=== PATIENT | male | born 1965 | race Caucasian/White ===

== ENCOUNTER 2016-10-29 20:18 | Emergency (ER) | payer OTHER ==
[~2016-10-29] VITALS: Ht 182.8 cm; Wt 81.6 kg
[2016-10-29] MEDS ORDERED: ANAPROX DS550 MG PO (20:51)
== END 2016-10-29 22:00 | disposition home or self-care (01) ==
LOC: ED 20:18
DX: M25.462 Effusion, left knee (principal); F17.200 Nicotine dependence, unspecified, uncomplicated

== ENCOUNTER 2021-05-23 16:44 | Inpatient (IN) | payer SELFPAY ==
[~2021-05-23] VITALS: Ht 182.8 cm; Wt 78.5 kg
[~2021-05-23 16:44] MED LIST: ANAPROX DS550 MG PO
[2021-05-23 17:15] VITALS: BP 154/106
[2021-05-23 17:50] LABS: HEMATOCRIT 42.7 % (42.0-52.0); MEAN CELL VOLUME 108.1 fl (80.0-94.0); MEAN CORPUSCULAR HGB 36.7 pg (27.0-31.0); MEAN PLATELET VOLUME 10.5 fl (9.6-12.3); PLATELET COUNT AUTOMATED 267 10*3/uL (130-400); RED BLOOD COUNT 3.95 10*6/uL (4.50-5.90); RED CELL DISTRI WIDTH 15.4 % (0-14.5); WHITE BLOOD COUNT 10.5 10*3/uL (4.8-10.8)
[2021-05-23 17:51] LABS: MANUAL DIFF REFLEX YES
[2021-05-23 18:01] LABS: ACT PARTIAL THROMBO TIME 24.8 SECONDS (20.0-32.1); INTERNATIONAL NORM RATIO 1.1 (2.0-3.5)
[2021-05-23 18:10] LABS: ALBUMIN 3.4 gm/dl (3.1-4.5); ALKALINE PHOSPHATASE 135 U/L (45-117); CHLORIDE 108 mmol/L (98-107); CREATININE 0.77 mg/dL (0.70-1.30); LIPASE 117 U/L (73-393); POTASSIUM 4.3 mmol/L (3.5-5.1); SGOT/AST 408 IU/L (3-35); SGPT/ALT 345 U/L (12-78); SODIUM 140 mmol/L (136-145); TOTAL PROTEIN 7.1 gm/dL (6.4-8.2)
[2021-05-23 18:14] LABS: BUN 12 mg/dl (7-24)
[2021-05-23 18:25] LABS: ATYPICAL LYMPHS 5 % (0-0); PLATELET SUFFICIENCY NORMAL (NORMAL); TOTAL CELLS COUNTED 100 #CELLS
[2021-05-23 20:02] VITALS: BP 160/107
[2021-05-23 21:52] VITALS: BP 125/107
[2021-05-23 22:47] VITALS: BP 131/74
[2021-05-24] VITALS (8 sets, daily range): BP systolic 123–146; BP diastolic 71–102
[2021-05-24 06:10] LABS: BUN 13 mg/dl (7-24); CHLORIDE 106 mmol/L (98-107); CHOLESTEROL 190 mg/dL (<200); CREATININE 0.65 mg/dL (0.70-1.30); POTASSIUM 4.2 mmol/L (3.5-5.1); SGOT/AST 466 IU/L (3-35); SGPT/ALT 305 U/L (12-78); SODIUM 139 mmol/L (136-145); TOTAL PROTEIN 6.7 gm/dL (6.4-8.2)
[2021-05-24 06:13] LABS: ALKALINE PHOSPHATASE 115 U/L (45-117); LDH 370 U/L (87-241); LDL CHOLESTEROL 79 mg/dL (9-159); TRIGLYCERIDES 81 mg/dl (<150)
[2021-05-24 06:15] LABS: BASO % 0.1 % (0.0-1.0); HEMATOCRIT 42.1 % (42.0-52.0); LYMPH # 0.4 10*3/uL (1.3-4.4); LYMPH % 6.4 % (27.0-41.0); MEAN CELL VOLUME 107.9 fl (80.0-94.0); MEAN CORPUSCULAR HGB 36.2 pg (27.0-31.0); MEAN CORPUSCULAR HGB CONC 33.5 g/dl (33.0-37.0); MEAN PLATELET VOLUME 11.2 fl (9.6-12.3); MONO # 0.4 10*3/uL (0.1-1.0); MONO % 6.4 % (3.0-9.0); NEUT % 86.8 % (47.0-73.0); PLATELET COUNT AUTOMATED 250 10*3/uL (130-400); RED CELL DISTRI WIDTH 15.2 % (0-14.5); WHITE BLOOD COUNT 6.9 10*3/uL (4.8-10.8)
[2021-05-24 06:30] LABS: INTERNATIONAL NORM RATIO 1.1 (2.0-3.5)
[2021-05-25] VITALS: BP 114/83
[2021-05-25 05:38] LABS: ALBUMIN 2.6 gm/dl (3.1-4.5); ALKALINE PHOSPHATASE 90 U/L (45-117); BUN 20 mg/dl (7-24); CHLORIDE 106 mmol/L (98-107); CREATININE 0.66 mg/dL (0.70-1.30); POTASSIUM 4.1 mmol/L (3.5-5.1); SGOT/AST 142 IU/L (3-35); SGPT/ALT 191 U/L (12-78); SODIUM 138 mmol/L (136-145); TOTAL PROTEIN 5.8 gm/dL (6.4-8.2)
[2021-05-25 06:44] LABS: BASO % 0.1 % (0.0-1.0); HEMATOCRIT 41.8 % (42.0-52.0); LYMPH # 1.2 10*3/uL (1.3-4.4); LYMPH % 8.3 % (27.0-41.0); MEAN CELL VOLUME 106.6 fl (80.0-94.0); MEAN CORPUSCULAR HGB 36.5 pg (27.0-31.0); MEAN CORPUSCULAR HGB CONC 34.2 g/dl (33.0-37.0); MEAN PLATELET VOLUME 11.5 fl (9.6-12.3); MONO # 1.1 10*3/uL (0.1-1.0); MONO % 7.8 % (3.0-9.0); NEUT # 11.5 10*3/uL (2.3-7.9); NEUT % 83.4 % (47.0-73.0); PLATELET COUNT AUTOMATED 243 10*3/uL (130-400); RED BLOOD COUNT 3.92 10*6/uL (4.50-5.90); RED CELL DISTRI WIDTH 14.6 % (0-14.5); WHITE BLOOD COUNT 13.8 10*3/uL (4.8-10.8)
[2021-05-25 08:00] VITALS: BP 114/78; BP 118/78
[2021-05-25 08:08] LABS: HEP B CORE AB, IGM Negative (Negative); HEPATITIS B SURFACE AG Negative (Negative); HEPATITIS C VIRUS ANTIBODY <0.1 s/co (0.0-0.9)
[2021-05-25 12:00] VITALS: BP 109/72
[2021-05-25 16:00] VITALS: BP 112/73
[2021-05-25 20:00] VITALS: BP 106/64
[2021-05-26] VITALS: BP 116/83
[2021-05-26 06:27] LABS: HEMATOCRIT 43.9 % (42.0-52.0); MEAN CELL VOLUME 108.4 fl (80.0-94.0); MEAN CORPUSCULAR HGB 37.8 pg (27.0-31.0); MEAN CORPUSCULAR HGB CONC 34.9 g/dl (33.0-37.0); MEAN PLATELET VOLUME 11.4 fl (9.6-12.3); PLATELET COUNT AUTOMATED 225 10*3/uL (130-400); RED BLOOD COUNT 4.05 10*6/uL (4.50-5.90); RED CELL DISTRI WIDTH 14.3 % (0-14.5); WHITE BLOOD COUNT 13.3 10*3/uL (4.8-10.8)
[2021-05-26 06:34] LABS: ALBUMIN 2.3 gm/dl (3.1-4.5); ALKALINE PHOSPHATASE 87 U/L (45-117); BUN 17 mg/dl (7-24); CHLORIDE 106 mmol/L (98-107); CREATININE 0.56 mg/dL (0.70-1.30); POTASSIUM 4.2 mmol/L (3.5-5.1); SGOT/AST 118 IU/L (3-35); SGPT/ALT 175 U/L (12-78); SODIUM 138 mmol/L (136-145)
[2021-05-26 07:06] LABS: MANUAL DIFF REFLEX YES
[2021-05-26 07:31] LABS: TOTAL CELLS COUNTED 100 #CELLS
[2021-05-26 07:32] LABS: PLATELET SUFFICIENCY NORMAL (NORMAL); POLYCHROMASIA SLIGHT; TARGET CELLS FEW
[2021-05-26 08:00] VITALS: BP 122/80
[2021-05-26 12:00] VITALS: BP 105/71
[2021-05-26 16:00] VITALS: BP 102/71; BP 110/73
[2021-05-26 20:00] VITALS: BP 118/85
[2021-05-27] VITALS: BP 112/77
[2021-05-27 06:23] LABS: EOS % 0.1 % (1.0-4.0); HEMATOCRIT 42.4 % (42.0-52.0); LYMPH # 1.8 10*3/uL (1.3-4.4); LYMPH % 16.7 % (27.0-41.0); MEAN CORPUSCULAR HGB CONC 34.4 g/dl (33.0-37.0); MEAN PLATELET VOLUME 10.7 fl (9.6-12.3); MONO % 9.8 % (3.0-9.0); NEUT # 7.7 10*3/uL (2.3-7.9); NEUT % 72.9 % (47.0-73.0); PLATELET COUNT AUTOMATED 227 10*3/uL (130-400); RED BLOOD COUNT 4.05 10*6/uL (4.50-5.90); RED CELL DISTRI WIDTH 13.9 % (0-14.5); WHITE BLOOD COUNT 10.6 10*3/uL (4.8-10.8)
[2021-05-27 06:40] LABS: ALBUMIN 2.6 gm/dl (3.1-4.5); ALKALINE PHOSPHATASE 76 U/L (45-117); BUN 14 mg/dl (7-24); CHLORIDE 104 mmol/L (98-107); CREATININE 0.58 mg/dL (0.70-1.30); POTASSIUM 4.2 mmol/L (3.5-5.1); SGOT/AST 95 IU/L (3-35); SGPT/ALT 167 U/L (12-78); SODIUM 135 mmol/L (136-145); TOTAL PROTEIN 5.9 gm/dL (6.4-8.2)
[2021-05-27 07:14] VITALS: BP 121/87
[2021-05-27 07:17] LABS: MEAN CELL VOLUME 104.7 fl (80.0-94.0)
[2021-05-27] MEDS ORDERED: LISINOPRIL10 M1 PO (10:56)
[2021-05-27] MEDS ORDERED: ALDACTONE25 MG PO (10:56)
[2021-05-27] MEDS ORDERED: METOPROLOL SUCC25 M2 PO (10:56)
[2021-05-27] MEDS ORDERED: LEVOFLOXACIN750 M2 PO (10:56)
[2021-05-27] MEDS ORDERED: FUROSEMIDE20 M1 PO (10:56)
[2021-05-27 12:00] VITALS: BP 101/73
== END 2021-05-27 15:15 | disposition home or self-care (01) | DRG 871 ==
LOC: ED 16:44 → EDHOLD 18:46 → 4E 05-24 16:38
PROVIDERS: Emergency Medicine; Family Medicine; Internal Medicine; ADMIT Internal Medicine; ATTEND Internal Medicine
DX: A41.9 Sepsis, unspecified organism (principal); J96.01 Acute respiratory failure with hypoxia; J15.9 Unspecified bacterial pneumonia; I50.23 Acute on chronic systolic (congestive) heart failure; E87.2 Acidosis; J44.0 Chronic obstructive pulmonary disease with (acute) lower respiratory infection; I08.1 Rheumatic disorders of both mitral and tricuspid valves; Z20.822 Contact with and (suspected) exposure to COVID-19; E87.8 Other disorders of electrolyte and fluid balance, not elsewhere classified; I27.20 Pulmonary hypertension, unspecified; E80.6 Other disorders of bilirubin metabolism; F17.210 Nicotine dependence, cigarettes, uncomplicated; F10.10 Alcohol abuse, uncomplicated; F19.10 Other psychoactive substance abuse, uncomplicated; R65.20 Severe sepsis without septic shock; R73.9 Hyperglycemia, unspecified; Z68.23 Body mass index [BMI] 23.0-23.9, adult; Z71.6 Tobacco abuse counseling

== ENCOUNTER → 2021-06-06 | Outpatient (CLI) | payer SELFPAY ==
[~2021-06-06] MED LIST changes: +ALDACTONE25 MG PO; +FUROSEMIDE20 M1 PO; +LEVOFLOXACIN750 M2 PO; +LISINOPRIL10 M1 PO; +METOPROLOL SUCC25 M2 PO
== END | disposition home or self-care (01) ==
LOC: RESCLI 00:44
PROVIDERS: ATTEND Internal Medicine Nephrology
DX: Z76.89 Persons encountering health services in other specified circumstances (principal); I50.20 Unspecified systolic (congestive) heart failure; J44.9 Chronic obstructive pulmonary disease, unspecified; Z12.2 Encounter for screening for malignant neoplasm of respiratory organs; Z12.11 Encounter for screening for malignant neoplasm of colon; K76.0 Fatty (change of) liver, not elsewhere classified; F10.10 Alcohol abuse, uncomplicated; F17.210 Nicotine dependence, cigarettes, uncomplicated; Z71.6 Tobacco abuse counseling; Z72.89 Other problems related to lifestyle; Z98.890 Other specified postprocedural states; Z79.899 Other long term (current) drug therapy

== ENCOUNTER 2023-03-05 10:06 | Emergency (ER) | payer SELFPAY ==
[~2023-03-05] VITALS: Ht 182.8 cm; Wt 81.6 kg
[2023-03-05 11:30] LABS: BASO % 0.5 % (0.0-1.0); EOS % 0.2 % (1.0-4.0); HEMATOCRIT 40.4 % (42.0-52.0); LYMPH # 0.9 10*3/uL (1.3-4.4); LYMPH % 11.2 % (27.0-41.0); MEAN CELL VOLUME 106.9 fl (80.0-94.0); MEAN CORPUSCULAR HGB 37.8 pg (27.0-31.0); MEAN CORPUSCULAR HGB CONC 35.4 g/dl (33.0-37.0); MEAN PLATELET VOLUME 10.7 fl (9.6-12.3); MONO # 1.2 10*3/uL (0.1-1.0); MONO % 15.1 % (3.0-9.0); NEUT # 5.9 10*3/uL (2.3-7.9); NEUT % 72.6 % (47.0-73.0); PLATELET COUNT AUTOMATED 199 10*3/uL (130-400); RED BLOOD COUNT 3.78 10*6/uL (4.50-5.90); RED CELL DISTRI WIDTH 12.7 % (0-14.5); WHITE BLOOD COUNT 8.1 10*3/uL (4.8-10.8)
[2023-03-05 11:35] LABS: BUN 9 mg/dl (9-23); CHLORIDE 105 mmol/L (98-107); POTASSIUM 4.5 mmol/L (3.4-5.1)
[2023-03-05] MEDS ORDERED: PREDNISONE50 MG PO (13:11)
[2023-03-05] MEDS ORDERED: ZITHROMAX250 MG PO (13:11)
== END 2023-03-05 13:18 | disposition home or self-care (01) ==
LOC: ED 10:06
PROVIDERS: Internal Medicine
DX: J44.1 Chronic obstructive pulmonary disease with (acute) exacerbation (principal); R11.2 Nausea with vomiting, unspecified; I10 Essential (primary) hypertension; Z98.890 Other specified postprocedural states; F17.200 Nicotine dependence, unspecified, uncomplicated; Z20.822 Contact with and (suspected) exposure to COVID-19

== ENCOUNTER 2023-03-13 09:45 | Inpatient (IN) | payer SELFPAY ==
[~2023-03-13] VITALS: Ht 182.8 cm; Wt 84.5 kg
[~2023-03-13 09:45] MED LIST changes: +PREDNISONE50 MG PO; +ZITHROMAX250 MG PO
[2023-03-13 09:51] VITALS: BP 154/98
[2023-03-13 10:53] LABS: ACT PARTIAL THROMBO TIME 31.3 SECONDS (20.0-32.1)
[2023-03-13 11:05] LABS: ALKALINE PHOSPHATASE 79 U/L (46-116); BUN 6 mg/dl (9-23); CHLORIDE 104 mmol/L (98-107); LIPASE 38 U/L (12-53); POTASSIUM 4.3 mmol/L (3.4-5.1); SGPT/ALT 131 U/L (5-49); TOTAL PROTEIN 6.7 gm/dL (6.0-8.0)
[2023-03-13 11:43] LABS: HEMATOCRIT 40.9 % (42.0-52.0); MEAN CELL VOLUME 109.9 fl (80.0-94.0); MEAN CORPUSCULAR HGB 37.9 pg (27.0-31.0); MEAN CORPUSCULAR HGB CONC 34.5 g/dl (33.0-37.0); MEAN PLATELET VOLUME 10.2 fl (9.6-12.3); PLATELET COUNT AUTOMATED 211 10*3/uL (130-400); RED BLOOD COUNT 3.72 10*6/uL (4.50-5.90); RED CELL DISTRI WIDTH 13.1 % (0-14.5); WHITE BLOOD COUNT 9.8 10*3/uL (4.8-10.8)
[2023-03-13 11:44] LABS: MANUAL DIFF REFLEX YES
[2023-03-13 12:07] LABS: PLATELET SUFFICIENCY NORMAL (NORMAL); POLYCHROMASIA SLIGHT; TOTAL CELLS COUNTED 100 #CELLS
[2023-03-13 12:23] VITALS: BP 145/104
[2023-03-13 13:34] LABS: ABG BASE EXCESS 1.1 mmol/L (-2.0-2.0); ARTERIAL BLOOD GAS PH 7.514 (7.35-7.45)
[2023-03-13 14:51] VITALS: BP 130/94
[2023-03-13 16:00] VITALS: BP 130/81
[2023-03-13 17:00] VITALS: BP 130/81
[2023-03-13 20:00] VITALS: BP 129/78
[2023-03-14] VITALS: BP 129/79
[2023-03-14 06:22] LABS: ALKALINE PHOSPHATASE 72 U/L (46-116); BUN 8 mg/dl (9-23); CHLORIDE 105 mmol/L (98-107); CHOLESTEROL 157 mg/dL (<200); FREE T4 1.31 ng/dl (0.89-1.76); LDL CHOLESTEROL 78 mg/dL (9-159); POTASSIUM 3.9 mmol/L (3.4-5.1); SGPT/ALT 105 U/L (5-49); TRIGLYCERIDES 60 mg/dl (<150)
[2023-03-14 06:29] LABS: MEAN CELL VOLUME 108.9 fl (80.0-94.0); MEAN CORPUSCULAR HGB 37.2 pg (27.0-31.0); MEAN CORPUSCULAR HGB CONC 34.2 g/dl (33.0-37.0); MEAN PLATELET VOLUME 11.1 fl (9.6-12.3); PLATELET COUNT AUTOMATED 194 10*3/uL (130-400); RED BLOOD COUNT 3.49 10*6/uL (4.50-5.90); WHITE BLOOD COUNT 8.4 10*3/uL (4.8-10.8)
[2023-03-14 06:38] LABS: MANUAL DIFF REFLEX YES
[2023-03-14 06:55] LABS: URINE AMPHETAMINES Negative (1000ng/ml); URINE BARBITURATES Negative (200ng/ml); URINE BENZODIAZEPINES Negative (200ng/ml); URINE CANNABINOIDS (THC) Negative (50ng/ml); URINE COCAINE Negative (300ng/ml); URINE METHADONE Negative (300ng/ml); URINE OPIATES Negative (300ng/ml); URINE PHENCYCLIDINE Negative (25ng/ml)
[2023-03-14 07:22] LABS: ATYPICAL LYMPHS 3 % (0-0); POLYCHROMASIA SLIGHT; TOTAL CELLS COUNTED 100 #CELLS
[2023-03-14 07:23] LABS: PLATELET SUFFICIENCY NORMAL (NORMAL)
[2023-03-14 08:00] VITALS: BP 128/79
[2023-03-14 12:00] VITALS: BP 114/65
[2023-03-14 16:00] VITALS: BP 104/68
[2023-03-14 20:00] VITALS: BP 104/80
[2023-03-15] VITALS: BP 114/75
[2023-03-15 06:29] LABS: HEMATOCRIT 38.8 % (42.0-52.0); MEAN CELL VOLUME 110.5 fl (80.0-94.0); MEAN CORPUSCULAR HGB 37.3 pg (27.0-31.0); MEAN CORPUSCULAR HGB CONC 33.8 g/dl (33.0-37.0); MEAN PLATELET VOLUME 10.9 fl (9.6-12.3); PLATELET COUNT AUTOMATED 210 10*3/uL (130-400); RED BLOOD COUNT 3.51 10*6/uL (4.50-5.90); WHITE BLOOD COUNT 7.2 10*3/uL (4.8-10.8)
[2023-03-15 06:34] LABS: MANUAL DIFF REFLEX YES
[2023-03-15 07:00] LABS: ALKALINE PHOSPHATASE 68 U/L (46-116); BUN 10 mg/dl (9-23); CHLORIDE 106 mmol/L (98-107); POTASSIUM 3.8 mmol/L (3.4-5.1); SGPT/ALT 81 U/L (5-49); TOTAL PROTEIN 6.2 gm/dL (6.0-8.0)
[2023-03-15 07:24] LABS: BASOPHILS 2 % (0-1); PLATELET SUFFICIENCY NORMAL (NORMAL); TOTAL CELLS COUNTED 100 #CELLS
[2023-03-15 07:50] VITALS: BP 120/70
[2023-03-15 12:00] VITALS: BP 100/60
[2023-03-15 16:00] VITALS: BP 99/64
[2023-03-15 20:00] VITALS: BP 109/67
[2023-03-16] VITALS: BP 109/74
[2023-03-16 06:13] LABS: BUN 11 mg/dl (9-23); CHLORIDE 106 mmol/L (98-107); POTASSIUM 4.2 mmol/L (3.4-5.1)
[2023-03-16 06:14] LABS: HEMATOCRIT 38.8 % (42.0-52.0); MEAN CELL VOLUME 111.2 fl (80.0-94.0); MEAN CORPUSCULAR HGB 37.2 pg (27.0-31.0); MEAN CORPUSCULAR HGB CONC 33.5 g/dl (33.0-37.0); MEAN PLATELET VOLUME 10.6 fl (9.6-12.3); PLATELET COUNT AUTOMATED 244 10*3/uL (130-400); RED BLOOD COUNT 3.49 10*6/uL (4.50-5.90); RED CELL DISTRI WIDTH 12.9 % (0-14.5); WHITE BLOOD COUNT 7.9 10*3/uL (4.8-10.8)
[2023-03-16 06:27] LABS: MANUAL DIFF REFLEX YES
[2023-03-16 06:53] LABS: PLATELET SUFFICIENCY NORMAL (NORMAL); ROULEAUX SLIGHT; TOTAL CELLS COUNTED 100 #CELLS
[2023-03-16 08:00] VITALS: BP 103/74
[2023-03-16] MEDS ORDERED: ALDACTONE25 MG PO (10:56)
[2023-03-16] MEDS ORDERED: ATORVASTATIN CA40 M1 PO (10:56)
[2023-03-16] MEDS ORDERED: VIBRAMYCIN HYC100 MG PO (10:56)
[2023-03-16] MEDS ORDERED: ENTRESTO 24 MG1 EACH PO (10:56)
[2023-03-16] MEDS ORDERED: METOPROLOL SUCC50 M1 PO (10:56)
== END 2023-03-16 12:30 | disposition home or self-care (01) | DRG 871 ==
LOC: ED 09:45 → EDHOLD 12:00 → 4E 12:00
PROVIDERS: Emergency Medicine; Family Medicine; Internal Medicine; ADMIT Internal Medicine; ATTEND Internal Medicine
DX: A41.9 Sepsis, unspecified organism (principal); I21.4 Non-ST elevation (NSTEMI) myocardial infarction; J15.69 Pneumonia due to other Gram-negative bacteria; J96.01 Acute respiratory failure with hypoxia; I50.23 Acute on chronic systolic (congestive) heart failure; R04.2 Hemoptysis; E87.1 Hypo-osmolality and hyponatremia; I42.9 Cardiomyopathy, unspecified; R73.9 Hyperglycemia, unspecified; E80.6 Other disorders of bilirubin metabolism; R74.01 Elevation of levels of liver transaminase levels; K76.0 Fatty (change of) liver, not elsewhere classified; R65.20 Severe sepsis without septic shock

== ENCOUNTER 2024-01-09 07:14 | Inpatient (IN) | payer SELFPAY ==
[~2024-01-09] VITALS: Ht 182.8 cm
[2024-01-09] VITALS (7 sets, daily range): BP systolic 143–163; BP diastolic 88–114
[~2024-01-09 07:14] MED LIST changes: +ATORVASTATIN CA40 M1 PO; +ENTRESTO 24 MG1 EACH PO; +METOPROLOL SUCC50 M1 PO; +VIBRAMYCIN HYC100 MG PO
[2024-01-09 08:05] LABS: HEMATOCRIT 41.4 % (42.0-52.0); MEAN CELL VOLUME 108.9 fl (80.0-94.0); MEAN CORPUSCULAR HGB 37.1 pg (27.0-31.0); MEAN CORPUSCULAR HGB CONC 34.1 g/dl (33.0-37.0); MEAN PLATELET VOLUME 10.2 fl (9.6-12.3); PLATELET COUNT AUTOMATED 192 10*3/uL (130-400); RED CELL DISTRI WIDTH 12.4 % (0-14.5)
[2024-01-09 08:06] LABS: MANUAL DIFF REFLEX YES
[2024-01-09 08:17] LABS: ACT PARTIAL THROMBO TIME 28.8 SECONDS (20.0-32.1)
[2024-01-09 08:32] LABS: BASOPHILS 2 % (0-1); PLATELET SUFFICIENCY NORMAL (NORMAL); TOTAL CELLS COUNTED 100 #CELLS
[2024-01-09 08:33] LABS: ALKALINE PHOSPHATASE 86 U/L (46-116); BUN 10 mg/dl (9-23); CHLORIDE 107 mmol/L (98-107); POTASSIUM 3.8 mmol/L (3.4-5.1); SGPT/ALT 67 U/L (5-49); TOTAL PROTEIN 7.2 gm/dL (6.0-8.0)
[2024-01-09] MEDS ORDERED: MAGNESIUM OXIDE 400 MG TAB PO ONE (09:00)
[2024-01-09] MEDS ORDERED: SODIUM CHLORIDE 0.9% 100 ML BAG IV ONE (09:10)
[2024-01-09] MEDS ORDERED: IOHEXOL 350 MG/ML 100 ML VIAL IV ONE (09:10)
[2024-01-09] MEDS ORDERED: Albuterol Sulf/Ipratropium 3 ML VIAL NEB ONE ×2 (09:35→11:30)
[2024-01-09] MEDS ORDERED: methylPREDNISolone sod succ 40 MG VIAL IV ONE (09:40)
[2024-01-09] MEDS ORDERED: ASPIRIN, CHEWABLE 81 MG TAB PO ONE (11:30)
[2024-01-09] MEDS ORDERED: Lactated Ringer's Solution 1,000 ML IV SCH (11:30)
[2024-01-09] MEDS ORDERED: LORazepam 1 MG TAB PO ONE (11:30)
[2024-01-09] MEDS ORDERED: ACETAMINOPHEN 325 MG TAB PO PRN (12:30)
[2024-01-09] MEDS ORDERED: Magnesium Hydroxide 30 ML UDC PO PRN (12:30)
[2024-01-09] MEDS ORDERED: BISACODYL 10 MG SUPP R PRN (12:30)
[2024-01-09] MEDS ORDERED: TEMAZEPAM 15 MG CAP PO PRN (12:30)
[2024-01-09] MEDS ORDERED: ACETAMINOPHEN 650 MG SUPP R PRN (12:30)
[2024-01-09] MEDS ORDERED: BISACODYL 5 MG TAB PO PRN (12:30)
[2024-01-09] MEDS ORDERED: Dicyclomine Hydrochloride 20 MG TAB PO PRN (12:35)
[2024-01-09] MEDS ORDERED: METHOCARBAMOL 750 MG TAB PO PRN (12:35)
[2024-01-09] MEDS ORDERED: METOPROLOL SUCCINATE XR 25 MG TAB PO SCH (12:35)
[2024-01-09] MEDS ORDERED: Water, Sterile 10 ML VIAL IV PRN (12:35)
[2024-01-09] MEDS ORDERED: LORazepam 2 MG/ML VIAL IV PRN (12:35)
[2024-01-09] MEDS ORDERED: Albuterol Sulf/Ipratropium 3 ML VIAL NEB PRN (12:40)
[2024-01-09] MEDS ORDERED: Ceftriaxone Sodium 1 GM in SYRINGE INFUSION 10 ML IV SCH (14:00)
[2024-01-09] MEDS ORDERED: AZITHROMYCIN 250 ML IV SCH (15:00)
[2024-01-09] MEDS ORDERED: METOPROLOL SUCCINATE XR 25 MG TAB PO ONE (15:20)
[2024-01-09] MEDS ORDERED: Levalbuterol Hydrochloride 0.63 MG VIAL NEB SCH (15:28)
[2024-01-09] MEDS ORDERED: FUROSEMIDE 40 MG/4 ML VIAL IV ONE (15:30)
[2024-01-09] MEDS ORDERED: LORazepam 1 MG TAB PO SCH (16:00)
[2024-01-09] MEDS ORDERED: GUAIFENESIN 600 MG TAB ER PO SCH (22:00)
[2024-01-10] VITALS: BP 134/95
[2024-01-10 06:17] LABS: HEMATOCRIT 39.6 % (42.0-52.0); MEAN CELL VOLUME 109.4 fl (80.0-94.0); MEAN CORPUSCULAR HGB 36.7 pg (27.0-31.0); MEAN CORPUSCULAR HGB CONC 33.6 g/dl (33.0-37.0); MEAN PLATELET VOLUME 11.2 fl (9.6-12.3); PLATELET COUNT AUTOMATED 193 10*3/uL (130-400); RED BLOOD COUNT 3.62 10*6/uL (4.50-5.90); RED CELL DISTRI WIDTH 12.1 % (0-14.5); WHITE BLOOD COUNT 6.7 10*3/uL (4.8-10.8)
[2024-01-10 06:22] LABS: MANUAL DIFF REFLEX YES
[2024-01-10 07:40] LABS: ATYPICAL LYMPHS 1 % (0-0); BURR CELLS FEW; PLATELET SUFFICIENCY NORMAL (NORMAL); POLYCHROMASIA SLIGHT; TOTAL CELLS COUNTED 100 #CELLS
[2024-01-10 08:00] VITALS: BP 135/85
[2024-01-10 08:44] LABS: VITAMIN D, 25-HYDROXY 17.8 ng/mL (30-100)
[2024-01-10 08:49] LABS: ALKALINE PHOSPHATASE 73 U/L (46-116); BUN 13 mg/dl (9-23); CHLORIDE 104 mmol/L (98-107); CHOLESTEROL 215 mg/dL (<200); FREE T4 1.28 ng/dl (0.89-1.76); LDL CHOLESTEROL 114 mg/dL (9-159); POTASSIUM 3.7 mmol/L (3.4-5.1); SGPT/ALT 49 U/L (5-49); TOTAL PROTEIN 6.8 gm/dL (6.0-8.0); TRIGLYCERIDES 44 mg/dl (<150)
[2024-01-10] MEDS ORDERED: METOPROLOL SUCCINATE XR 50 MG TAB PO SCH (10:00)
[2024-01-10] MEDS ORDERED: ASPIRIN ENTERIC COATED 81 MG TAB PO SCH (10:00)
[2024-01-10] MEDS ORDERED: Thiamine 100 MG TAB PO SCH (10:00)
[2024-01-10] MEDS ORDERED: MULTIVITAMIN 1 TAB TAB PO SCH (10:00)
[2024-01-10] MEDS ORDERED: FOLIC ACID 1 MG TAB PO SCH (10:00)
[2024-01-10] MEDS ORDERED: ATORVASTATIN CALCIUM 40 MG TABLET PO SCH (10:00)
[2024-01-10] MEDS ORDERED: Enoxaparin Sodium 40 MG/0.4 ML SYR SC SCH (10:00)
[2024-01-10] MEDS ORDERED: SACUBITRIL/VALSARTAN 24 MG-26 MG TABLET PO SCH (10:00)
[2024-01-10] MEDS ORDERED: methylPREDNISolone sod succ 40 MG VIAL IV SCH (10:00)
[2024-01-10] MEDS ORDERED: FUROSEMIDE 40 MG/4 ML VIAL IV SCH (10:00)
[2024-01-10 12:00] VITALS: BP 121/86
[2024-01-10] MEDS ORDERED: LORazepam 1 MG TAB PO SCH (18:00)
[2024-01-11] MEDS ORDERED: LORazepam 1 MG TAB PO PRN
[2024-01-11] MEDS ORDERED: Vitamin D 1,000 IU TAB (25 MCG) PO SCH (10:00)
[2024-01-11] MEDS ORDERED: VALSARTAN 40 MG TAB PO SCH (10:00)
[2024-01-11] MEDS ORDERED: Losartan Potassium 25 MG TAB PO SCH ×2 (10:00)
== END 2024-01-10 14:24 | disposition left against medical advice (07) | DRG 280 ==
LOC: ED 07:14 → EDHOLD 12:01 → 4E 12:01 → EDHOLD 12:42 → 4E 15:18
PROVIDERS: Emergency Medicine; Student in an Organized Health Care Education/Training Program; ADMIT Internal Medicine; ATTEND Internal Medicine
DX: I50.23 Acute on chronic systolic (congestive) heart failure (principal); J96.01 Acute respiratory failure with hypoxia; I21.A1 Myocardial infarction type 2; J44.1 Chronic obstructive pulmonary disease with (acute) exacerbation; R65.10 Systemic inflammatory response syndrome (SIRS) of non-infectious origin without acute organ dysfunction; F10.239 Alcohol dependence with withdrawal, unspecified; I42.8 Other cardiomyopathies; R74.01 Elevation of levels of liver transaminase levels; K76.0 Fatty (change of) liver, not elsewhere classified; F17.210 Nicotine dependence, cigarettes, uncomplicated; D75.89 Other specified diseases of blood and blood-forming organs; R73.9 Hyperglycemia, unspecified; I34.0 Nonrheumatic mitral (valve) insufficiency; Z53.29 Procedure and treatment not carried out because of patient's decision for other reasons; E83.42 Hypomagnesemia; Z71.6 Tobacco abuse counseling; Z79.899 Other long term (current) drug therapy; Z79.01 Long term (current) use of anticoagulants; Z79.2 Long term (current) use of antibiotics; Z80.1 Family history of malignant neoplasm of trachea, bronchus and lung; Z80.8 Family history of malignant neoplasm of other organs or systems; Y90.0 Blood alcohol level of less than 20 mg/100 ml

== ENCOUNTER 2024-03-31 09:17 | Inpatient (IN) | payer SELFPAY ==
[2024-03-31] VITALS (9 sets, daily range): BP systolic 140–185; BP diastolic 93–122
[~2024-03-31] VITALS: Ht 182.9 cm; Wt 85.0 kg
[2024-03-31] MEDS ORDERED: FUROSEMIDE 40 MG/4 ML VIAL IV ONE (09:25)
[2024-03-31] MEDS ORDERED: NITROGLYCERIN 0.4 MG PATCH T ONE (09:25)
[2024-03-31] MEDS ORDERED: hydrALAZINE hydrochloride 20 MG/ML VIAL IV ONE (09:25)
[2024-03-31 09:48] LABS: MEAN CELL VOLUME 115.6 fl (80.0-94.0); MEAN CORPUSCULAR HGB 37.4 pg (27.0-31.0); MEAN CORPUSCULAR HGB CONC 32.3 g/dl (33.0-37.0); MEAN PLATELET VOLUME 10.6 fl (9.6-12.3); PLATELET COUNT AUTOMATED 211 10*3/uL (130-400); RED BLOOD COUNT 3.72 10*6/uL (4.50-5.90); RED CELL DISTRI WIDTH 14.9 % (0-14.5); WHITE BLOOD COUNT 8.7 10*3/uL (4.8-10.8)
[2024-03-31 09:52] LABS: MANUAL DIFF REFLEX YES
[2024-03-31 10:05] LABS: ALKALINE PHOSPHATASE 165 U/L (46-116); BUN 12 mg/dl (9-23); CHLORIDE 107 mmol/L (98-107)
[2024-03-31 10:13] LABS: BASOPHILS 1 % (0-1); PLATELET SUFFICIENCY NORMAL (NORMAL); TOTAL CELLS COUNTED 100 #CELLS
[2024-03-31 10:20] LABS: SGPT/ALT 233 U/L (5-49)
[2024-03-31] MEDS ORDERED: AZITHROMYCIN 250 ML IV ONE (11:25)
[2024-03-31] MEDS ORDERED: Ceftriaxone Sodium 10 ML IV SCH (12:00)
[2024-03-31] MEDS ORDERED: Metoprolol Tartrate 5 MG/5 ML VIAL IV ONE (12:00)
[2024-03-31] MEDS ORDERED: BISACODYL 5 MG TAB PO PRN (12:10)
[2024-03-31] MEDS ORDERED: ACETAMINOPHEN 325 MG TAB PO PRN (12:10)
[2024-03-31] MEDS ORDERED: Ondansetron Hydrochloride 4 MG/2 ML VIAL IV PRN (12:10)
[2024-03-31 12:27] LABS: ABG O2 SATURATION 99.6 % (94.0-98.0); ARTERIAL BLOOD GAS PH 7.512 (7.350-7.450); ARTERIAL BLOOD GAS PO2 135.4 mmHg (83.0-108.0)
[2024-03-31] MEDS ORDERED: Albuterol Sulf/Ipratropium 3 ML VIAL NEB SCH (12:27)
[2024-03-31 12:29] LABS: ABG BASE EXCESS 3.5 mmol/L (-2.0-3.0)
[2024-03-31] MEDS ORDERED: Doxycycline Hyclate 100 MG in SODIUM CHLORIDE 0.9% 250 ML IV SCH (18:00)
[2024-03-31] MEDS ORDERED: FUROSEMIDE 40 MG/4 ML VIAL IV SCH (18:00)
[2024-03-31] MEDS ORDERED: TEMAZEPAM 15 MG CAP PO PRN (22:00)
[2024-03-31] MEDS ORDERED: methylPREDNISolone sod succ 125 MG VIAL IV SCH (22:00)
[2024-03-31] MEDS ORDERED: GUAIFENESIN 600 MG TAB ER PO SCH (22:00)
[2024-04-01 04:00] VITALS: BP 105/41; BP 136/87
[2024-04-01 06:39] LABS: ALKALINE PHOSPHATASE 138 U/L (46-116); BUN 14 mg/dl (9-23); CHLORIDE 99 mmol/L (98-107); CHOLESTEROL 163 mg/dL (<200); LDL CHOLESTEROL 95 mg/dL (9-159); POTASSIUM 3.4 mmol/L (3.4-5.1); SGPT/ALT 179 U/L (5-49); TOTAL PROTEIN 6.7 gm/dL (6.0-8.0); TRIGLYCERIDES 42 mg/dl (<150)
[2024-04-01 07:19] LABS: HEMATOCRIT 39.3 % (42.0-52.0); MEAN CORPUSCULAR HGB 37.2 pg (27.0-31.0); MEAN CORPUSCULAR HGB CONC 33.1 g/dl (33.0-37.0); MEAN PLATELET VOLUME 10.9 fl (9.6-12.3); PLATELET COUNT AUTOMATED 211 10*3/uL (130-400); RED BLOOD COUNT 3.49 10*6/uL (4.50-5.90); RED CELL DISTRI WIDTH 14.9 % (0-14.5); WHITE BLOOD COUNT 6.9 10*3/uL (4.8-10.8)
[2024-04-01 07:22] LABS: MEAN CELL VOLUME 112.6 fl (80.0-94.0)
[2024-04-01 07:23] LABS: MANUAL DIFF REFLEX YES
[2024-04-01 07:27] LABS: ABG O2 SATURATION 94.6 % (94.0-98.0); ARTERIAL BLOOD GAS PH 7.526 (7.350-7.450); ARTERIAL BLOOD GAS PO2 67.8 mmHg (83.0-108.0)
[2024-04-01 07:28] LABS: TOTAL CELLS COUNTED 100 #CELLS
[2024-04-01 07:28] LABS: ABG BASE EXCESS 4.6 mmol/L (-2.0-3.0)
[2024-04-01 07:29] LABS: OVALOCYTES FEW; PLATELET SUFFICIENCY NORMAL (NORMAL); POLYCHROMASIA SLIGHT; TARGET CELLS FEW
[2024-04-01 08:00] VITALS: BP 119/70
[2024-04-01 08:11] LABS: VITAMIN D, 25-HYDROXY 29.8 ng/mL (30-100)
[2024-04-01] MEDS ORDERED: Ceftriaxone Sodium 1 GM,IV 1 EA in SYRINGE INFUSION 10 ML IV SCH (10:00)
[2024-04-01] MEDS ORDERED: Enoxaparin Sodium 40 MG/0.4 ML SYR SC SCH (10:00)
[2024-04-01] MEDS ORDERED: Nicotine 21 MG PATCH T SCH (10:00)
[2024-04-01] MEDS ORDERED: LISINOPRIL 10 MG TAB PO SCH (10:00)
[2024-04-01] MEDS ORDERED: ASPIRIN ENTERIC COATED 81 MG TAB PO SCH (10:00)
[2024-04-01] MEDS ORDERED: METOPROLOL SUCCINATE XR 25 MG TAB PO SCH (10:15)
[2024-04-01] MEDS ORDERED: SPIRONOLACTONE 25 MG TAB PO SCH (10:15)
[2024-04-01 16:00] VITALS: BP 119/75
[2024-04-01] MEDS ORDERED: MAGNESIUM OXIDE 400 MG TAB PO SCH (18:00)
[2024-04-01 20:00] VITALS: BP 104/74
[2024-04-01] MEDS ORDERED: methylPREDNISolone sod succ 40 MG VIAL IV SCH (22:00)
[2024-04-01] MEDS ORDERED: Doxycycline Hyclate 100 MG CAP PO SCH (22:00)
[2024-04-01 23:58] VITALS: BP 97/50
[2024-04-02 05:05] LABS: BUN 18 mg/dl (9-23); CHLORIDE 98 mmol/L (98-107); POTASSIUM 4.3 mmol/L (3.4-5.1)
[2024-04-02 06:12] LABS: MEAN CELL VOLUME 113.4 fl (80.0-94.0); MEAN CORPUSCULAR HGB 36.9 pg (27.0-31.0); MEAN CORPUSCULAR HGB CONC 32.6 g/dl (33.0-37.0); PLATELET COUNT AUTOMATED 206 10*3/uL (130-400); RED BLOOD COUNT 3.44 10*6/uL (4.50-5.90); RED CELL DISTRI WIDTH 15.2 % (0-14.5); WHITE BLOOD COUNT 10.5 10*3/uL (4.8-10.8)
[2024-04-02 06:28] LABS: MANUAL DIFF REFLEX YES
[2024-04-02 07:27] LABS: PLATELET SUFFICIENCY NORMAL (NORMAL); POLYCHROMASIA SLIGHT; TOTAL CELLS COUNTED 100 #CELLS
[2024-04-02 07:57] VITALS: BP 137/82
[2024-04-02 12:26] VITALS: BP 120/71
[2024-04-02] MEDS ORDERED: ASPIRIN ADULT L81 M2 PO (14:04)
[2024-04-02] MEDS ORDERED: VENT7GM INH (14:04)
[2024-04-02] MEDS ORDERED: PREDNISONE10 MG PO (14:04)
[2024-04-02] MEDS ORDERED: LISINOPRIL10 M1 PO (14:04)
[2024-04-02] MEDS ORDERED: VENTOLIN 02.5 MG/3 M INH (14:04)
[2024-04-02] MEDS ORDERED: ANORO ELLIPTA1 EACH INH (14:04)
[2024-04-02] MEDS ORDERED: LASIX40 MG PO (14:04)
[2024-04-02] MEDS ORDERED: METOPROLOL SUCC25 M2 PO (14:04)
[2024-04-02] MEDS ORDERED: ALDACTONE25 MG PO (14:04)
[2024-04-02] MEDS ORDERED: NEBULIZER DEVI (14:04)
[2024-04-02] MEDS ORDERED: DOXYCYCLINE MO100 MG PO (14:04)
== END 2024-04-02 14:33 | disposition home or self-care (01) | DRG 871 ==
LOC: ED 09:17 → EDHOLD 10:57 → ICCU 10:57 → EDHOLD 12:42 → ICCU 13:48
PROVIDERS: Emergency Medicine; Internal Medicine Critical Care Medicine; Registered Nurse; Student in an Organized Health Care Education/Training Program; ADMIT Internal Medicine; ATTEND Internal Medicine
PROC: 5A09357 Assistance with Respiratory Ventilation, Less than 24 Consecutive Hours, Continuous Positive Airway Pressure (ICD-10-PCS; principal; 2024-03-31)
PROC: 5A09357 Assistance with Respiratory Ventilation, Less than 24 Consecutive Hours, Continuous Positive Airway Pressure (ICD-10-PCS; 2024-04-01)
DX: A41.9 Sepsis, unspecified organism (principal); I50.23 Acute on chronic systolic (congestive) heart failure; J96.21 Acute and chronic respiratory failure with hypoxia; J18.9 Pneumonia, unspecified organism; J45.901 Unspecified asthma with (acute) exacerbation; J44.1 Chronic obstructive pulmonary disease with (acute) exacerbation; I31.39 Other pericardial effusion (noninflammatory); E87.3 Alkalosis; I42.0 Dilated cardiomyopathy; J44.0 Chronic obstructive pulmonary disease with (acute) lower respiratory infection; I11.0 Hypertensive heart disease with heart failure; R65.20 Severe sepsis without septic shock; R74.01 Elevation of levels of liver transaminase levels; R91.8 Other nonspecific abnormal finding of lung field; F17.210 Nicotine dependence, cigarettes, uncomplicated; I27.20 Pulmonary hypertension, unspecified; I34.0 Nonrheumatic mitral (valve) insufficiency; I45.81 Long QT syndrome; I25.2 Old myocardial infarction; Z80.1 Family history of malignant neoplasm of trachea, bronchus and lung; Z91.148 Patient's other noncompliance with medication regimen for other reason; Z80.49 Family history of malignant neoplasm of other genital organs

== ENCOUNTER 2024-10-22 15:42 | Emergency (ER) | payer SELFPAY ==
[~2024-10-22] VITALS: Wt 81.6 kg
[~2024-10-22 15:42] MED LIST changes: +ANORO ELLIPTA1 EACH INH; +ASPIRIN ADULT L81 M2 PO; +DOXYCYCLINE MO100 MG PO; +LASIX40 MG PO; +NEBULIZER DEVI; +PREDNISONE10 MG PO; +VENT7GM INH; +VENTOLIN 02.5 MG/3 M INH
[2024-10-22] MEDS ORDERED: SODIUM CHLORIDE 0.9% 1,000 ML IV ONE (16:05)
[2024-10-22] MEDS ORDERED: LASIX40 MG PO (17:06)
[2024-10-22 17:13] LABS: MEAN CELL VOLUME 112.4 fl (80.0-94.0); MEAN CORPUSCULAR HGB 37.6 pg (27.0-31.0); MEAN PLATELET VOLUME 9.9 fl (9.6-12.3); NUCLEATED RED BLOOD CELL 0.0 % (0.0-0.0); NUCLEATED RED BLOOD CELL 0.0 10*3/uL (0.0-0.0); PLATELET COUNT AUTOMATED 182 10*3/uL (130-400); RED CELL DISTRI WIDTH 12.6 % (0-14.5)
[2024-10-22 17:26] LABS: MANUAL DIFF REFLEX YES
[2024-10-22 17:36] LABS: ACT PARTIAL THROMBO TIME 25.2 SECONDS (20.0-32.1); BASOPHILS 1 % (0-1); BUN 59.0 mg/dl (9-23); ETHYL ALCOHOL 179.9 mg/dl (<3); PLATELET SUFFICIENCY NORMAL (NORMAL); SGPT/ALT 74.0 U/L (5-49)
[2024-10-22 17:37] LABS: STOMATOCYTE FEW
[2024-10-22 18:35] LABS: BILIRUBIN Negative (Negative); BLOOD Negative (Negative); CLARITY Clear (Clear); COLOR Yellow (Yellow); KETONE Trace (Negative); LEUKO ESTERASE Negative (Negative); NITRITE Negative (Negative); PH 5.5 (4.5-8.0); SPECIFIC GRAVITY 1.015 (1.001-1.030); UROBILINOGEN 0.2 E.U./dl (0.0-1.0)
[2024-10-22 18:44] LABS: URINE AMPHETAMINES Negative (1000ng/ml); URINE BARBITURATES Negative (200ng/ml); URINE BENZODIAZEPINES Negative (200ng/ml); URINE CANNABINOIDS (THC) Negative (50ng/ml); URINE COCAINE Negative (300ng/ml); URINE METHADONE Negative (300ng/ml); URINE OPIATES Positive (300ng/ml); URINE PHENCYCLIDINE Negative (25ng/ml)
[2024-10-22 19:17] LABS: BACTERIA 3+; EPITHELIAL CELLS 0-2; RBC 0-2 rbc/hpf (0-2)
== END 2024-10-22 21:22 | disposition home or self-care (01) ==
LOC: ED 15:42
PROVIDERS: Internal Medicine
DX: R55 Syncope and collapse (principal); I12.9 Hypertensive chronic kidney disease with stage 1 through stage 4 chronic kidney disease, or unspecified chronic kidney disease; N18.9 Chronic kidney disease, unspecified; N17.9 Acute kidney failure, unspecified; J44.9 Chronic obstructive pulmonary disease, unspecified; F10.129 Alcohol abuse with intoxication, unspecified; E87.1 Hypo-osmolality and hyponatremia; D53.9 Nutritional anemia, unspecified; R74.01 Elevation of levels of liver transaminase levels; Z79.899 Other long term (current) drug therapy; Y90.9 Presence of alcohol in blood, level not specified

== ENCOUNTER → 2025-03-19 | Outpatient (CLI) | payer MEDICAID | END | disposition home or self-care (01) | LOC: CARD 02:43 | PROVIDERS: ATTEND Family Medicine | DX: R00.0 Tachycardia, unspecified (principal); I50.20 Unspecified systolic (congestive) heart failure ==